=== PATIENT | male | born 1990 | race African-American/Black ===

== ENCOUNTER 2019-09-16 14:49 | Emergency (ER) | payer BC ==
[2019-09-16 15:26] VITALS: BP 149/88
--- NOTE | 2019-09-16 15:34 | ER Document Report ---
ED Blood Pressure Problem - General Chief Complaint: High Blood Pressure Stated Complaint: HEAD PRESSURE,DISORIENTED Time Seen by Provider: 09/16/19 15:20 Primary Care Provider: [facility] [Provider Group] - Follow up as needed [facility] [Provider Group] - Follow up as needed [facility] [Provider Group] - Follow up as needed SHABANA CALVIN MD [ACTIVE STAFF] - Follow up as needed GAYLE WOODS MD [ACTIVE STAFF] - Follow up as needed Mode of Arrival: Ambulatory Information source: Patient Notes: 29-year-old male presented to ED for complaint of high blood pressures since yesterday. He states his blood pressure was 161/98 yesterday and then he has had multiple times today. He states he is not on any blood pressure medicines. When I took his blood pressure in the pit area it was 149/88. I have discussed diet and exercise and precautions for his high blood pressure but will not start him on medications today. I have instructed him to take his blood pressure twice a day for the next week and then get himself a primary doctor to follow-up with. [facility] - Related Data Allergies/Adverse Reactions: No Known Allergies Allergy (Unverified 09/16/19 15:21) Past Medical History - Social History Smoking Status: Never Smoker Frequency of alcohol use: None Drug Abuse: None Lives with: Family Family History: Reviewed & Not Pertinent Patient has homicidal ideation: No - Past Medical History Cardiac Medical History: Reports: None Pulmonary Medical History: Reports: None EENT Medical History: Reports: None Neurological Medical History: Reports: None Endocrine Medical History: Reports: None Renal/ Medical History: Reports: None Malignancy Medical History: Reports None GI Medical History: Reports: None Musculoskeletal Medical History: Reports None Skin Medical History: Reports None Psychiatric Medical History: Reports: None Traumatic Medical History: Reports: None Infectious Medical History: Reports: None Surgical Hx: Negative Past Surgical History: Reports: None - Immunizations Immunizations up to date: Yes Hx Diphtheria, Pertussis, Tetanus Vaccination: Yes Review of Systems - Review of Systems Constitutional: No symptoms reported EENT: No symptoms reported Cardiovascular: No symptoms reported Respiratory: No symptoms reported Gastrointestinal: No symptoms reported Genitourinary: No symptoms reported Male Genitourinary: No symptoms reported Musculoskeletal: No symptoms reported Skin: No symptoms reported Hematologic/Lymphatic: No symptoms reported Neurological/Psychological: No symptoms reported -: Yes All other systems reviewed and negative Physical Exam - Vital signs Vitals: Temp Pulse Resp BP Pulse Ox 98.6 F 85 17 157/98 H 97 09/16/19 14:54 09/16/19 14:54 09/16/19 14:54 09/16/19 14:54 09/16/19 14:54 Interpretation: Hypertensive - General General appearance: Appears well, Alert - HEENT Head: Normocephalic, Atraumatic Eyes: Normal Pupils: PERRL - Respiratory Respiratory status: No respiratory distress Chest status: Nontender Breath sounds: Normal Chest palpation: Normal - Cardiovascular Rhythm: Regular Heart sounds: Normal auscultation Murmur: No - Abdominal Inspection: Normal Distension: No distension Bowel sounds: Normal Tenderness: Nontender Organomegaly: No organomegaly - Back Back: Normal, Nontender - Extremities General upper extremity: Normal inspection, Nontender, Normal color, Normal ROM, Normal temperature General lower extremity: Normal inspection, Nontender, Normal color, Normal ROM, Normal temperature, Normal weight bearing. No: Kishor's sign - Neurological Neuro grossly intact: Yes Cognition: Normal Orientation: AAOx4 Eros Coma Scale Eye Opening: Spontaneous Eros Coma Scale Verbal: Oriented Emilee Coma Scale Motor: Obeys Commands Emilee Coma Scale Total: 15 Speech: Normal Motor strength normal: LUE, RUE, LLE, RLE Sensory: Normal - Psychological Associated symptoms: Normal affect, Normal mood - Skin Skin Temperature: Warm Skin Moisture: Dry Skin Color: Normal Course - Vital Signs Vital signs: Temp Pulse Resp BP Pulse Ox 98.6 F 85 17 149/88 H 97 09/16/19 15:19 09/16/19 14:54 09/16/19 14:54 09/16/19 15:26 09/16/19 14:54 Discharge - Discharge Clinical Impression: High blood pressure Qualifiers: Hypertension type: unspecified Qualified Code(s): I10 - Essential (primary) hypertension Condition: Stable Disposition: HOME, SELF-CARE Additional Instructions: HIGH BLOOD PRESSURE, NOT TREAT: When your blood pressure was taken today it was elevated. Today's reading was ___149/88 . We do not think you need to have your blood pressure treated today. Sometimes, stress or illness causes a temporary elevation of your blood pressure. We suggest that you get your blood pressure measured again during the next few days to see if this elevated blood pressure is more than a temporary abnormality. If your blood pressure is greater than 150/90 on each occasion, you must have treatment. Some simple things you can do to help are: If you have blood pressure medicine but aren't using it regularly, start taking it again. Get some aerobic exercise for at least 20 minutes on a daily basis. (See your doctor before beginning a new exercise program.) Eat a low-fat diet. Lose excess weight. Avoid salty foods and avoid adding salt to any of the foods you eat. Avoid diet pills, decongestants, "energizing" herbs, and other medicines that elevate blood pressure. If left untreated, hypertension greatly enhances your risk for developing heart disease and strokes. Please don't ignore this problem. Take your blood pressure twice a day for the next week. Keep it on a log. Please do that about the same time day each day. Please decrease your energy drinks and caffeine continue the diet you have started. No cold medications are as these will increase your blood pressure. FOLLOW-UP CARE: If you have been referred to a physician for follow-up care, call the physicians office for an appointment as you were instructed or within the next two days. If you experience worsening or a significant change in your symptoms, notify the physician immediately or return to the Emergency Department at any time for re-evaluation. Forms: Return to Work Referrals: [facility] [Provider Group] - Follow up as needed [facility] [Provider Group] - Follow up as needed [facility] [Provider Group] - Follow up as needed GAYLE WOODS MD [ACTIVE STAFF] - Follow up as needed SHABANA CALVIN MD [ACTIVE STAFF] - Follow up as needed
== END 2019-09-16 15:36 | disposition home or self-care (01) ==
LOC: ER 14:49
DX: I10 Essential (primary) hypertension (principal)
CPT/HCPCS: 99283